=== PATIENT | male | born 1935 | race Two or more races ===

== ENCOUNTER 2018-10-12 14:46 | Outpatient (CLI) | payer OTHER ==
[~2018-10-12 14:46] MED LIST: CARTIA XT120 MG; FUROSEMIDE20 MG; LANOXIN0.25 MG; PRADAXA75 MG
== END 2018-10-12 14:54 | disposition home or self-care (01) ==
LOC: MAMO-SONO 14:46
DX: N43.2 Other hydrocele (principal)

== ENCOUNTER 2018-11-30 11:19 | Outpatient (CLI) | payer OTHER | END 2018-11-30 11:21 | disposition home or self-care (01) | LOC: SONOGRAMA 11:19 | DX: N40.1 Benign prostatic hyperplasia with lower urinary tract symptoms (principal) ==

== ENCOUNTER 2021-02-20 08:17 | Outpatient (CLI) | payer OTHER | END 2021-02-20 08:30 | disposition home or self-care (01) | LOC: SONOGRAMA 08:17 → MAMO-SONO 08:30 | PROVIDERS: ATTEND Urology | DX: Q61.02 Congenital multiple renal cysts (principal); N40.1 Benign prostatic hyperplasia with lower urinary tract symptoms ==

== ENCOUNTER → 2021-03-27 | Outpatient (CLI) | payer OTHER | END | disposition home or self-care (01) | LOC: MAMO-SONO 09:15 → SONOGRAMA 09:22 | DX: N40.1 Benign prostatic hyperplasia with lower urinary tract symptoms (principal); N40.0 Benign prostatic hyperplasia without lower urinary tract symptoms ==

== ENCOUNTER 2022-10-29 10:57 | Outpatient (CLI) | payer OTHER | END 2022-10-29 11:06 | disposition home or self-care (01) | LOC: RAD 10:57 | PROVIDERS: ATTEND Internal Medicine Cardiovascular Disease | DX: I11.0 Hypertensive heart disease with heart failure (principal); I48.20 Chronic atrial fibrillation, unspecified; R06.02 Shortness of breath; I42.9 Cardiomyopathy, unspecified ==